=== PATIENT | male | born 1955 | race African-American/Black ===

== ENCOUNTER → 2019-04-30 | Day surgery (SDC) | payer MEDICARE ==
[2019-04-29 10:28] LABS: BASOPHILS % 0.8 % (0.0-1.0); EOSINOPHILS # (AUTO) 0.1 (0.0-0.4); EOSINOPHILS % 1.6 % (0.0-6.0); HEMATOCRIT 35.9 % (38.2-49.6); HEMOGLOBIN 12.2 g/dL (14.0-18.0); LYMPHOCYTES # (AUTO) 1.6 (1.0-3.2); LYMPHOCYTES % 40.8 % (18.0-39.1); MEAN CORPUSCULAR HEMOGLOBIN 33.1 pg (28-32); MEAN CORPUSCULAR VOLUME 97.3 fL (81-99); MONOCYTES # (AUTO) 0.3 (0.2-0.8); MONOCYTES % 6.8 % (4.4-11.3); NEUTROPHILS # (AUTO) 1.9 (2.1-6.9); NEUTROPHILS % 49.7 % (38.7-80.0); PLATELET COUNT 248 x10e3/uL (140-360); RED BLOOD COUNT 3.69 x10e6/uL (4.3-5.7); RED CELL DISTRIBUTION WIDTH 12.4 % (11.7-14.4)
[~2019-04-30] MED LIST: BRILINTA90 MG PO; ELIQUIS5 MG PO; GABAPENTIN100 MG PO; LEVEMIR100 UNIT/1 SQ; LIDOCAINE HCL 2% LOCAL INJ 5 ML SDV VIAL INJ ONE; LISINOPRIL10 MG PO; LOVASTATIN40 MG PO; METFORMIN HCL500 MG PO; METOPROLOL TART50 MG PO; MIDAZOLAM HCL 2 MG/2 ML VIAL ONE; PROPOFOL IV EMULSION 10 MG/ML 50 ML VIAL ONE; RANEXA500 MG PO; VASCEPA1 GM PO
[2019-04-30 09:45] VITALS: BP 139/87
--- NOTE | 2019-04-30 15:40 | Operative Report ---
DATE OF PROCEDURE: SURGEON: Justin Edgar MD NAME OF THE PROCEDURE: Colonoscopy. PREOPERATIVE DIAGNOSIS: Colon cancer screening. DESCRIPTION OF PROCEDURE: After informed written consent, premedications with monitored anesthesia care, a standard video Olympus colonoscope was introduced into the rectum and all the way into the terminal ileum. The terminal ileum and cecum appeared to be normal. The proximal ascending colon showed a 6 mm polyp, removed by cold snare and one Endoclip was placed since the patient was on Eliquis. The descending, transverse, sigmoid, rectum did not show any obstructive lesions, but the prep was suboptimal. IMPRESSION: 1. Suboptimal prep. 2. Colon polyp. RECOMMENDATION: Resume blood thinners tomorrow and repeat colonoscopy in one year with a two-day prep to rule out any other lesions. Justin Edgar MD SR/MODL /[id number] cc: Dayami Calvo MD; FAX:[phone] [address] [place] [address].
== END | disposition home or self-care (01) ==
LOC: OR 06:32
PROVIDERS: ATTEND Internal Medicine Gastroenterology
DX: Z12.11 Encounter for screening for malignant neoplasm of colon (principal); D12.2 Benign neoplasm of ascending colon; I10 Essential (primary) hypertension; I48.91 Unspecified atrial fibrillation; E11.9 Type 2 diabetes mellitus without complications; Z01.812 Encounter for preprocedural laboratory examination; Z79.84 Long term (current) use of oral hypoglycemic drugs; Z79.02 Long term (current) use of antithrombotics/antiplatelets; Z86.73 Personal history of transient ischemic attack (TIA), and cerebral infarction without residual deficits
CPT/HCPCS: 36415 ×2; 45385; 82948; 85025; 88305; J2001; J2250; J2704; 44391

== ENCOUNTER → 2019-12-03 | Day surgery (SDC) | payer MEDICARE ==
[2019-11-29 17:39] LABS: BASOPHILS % 0.7 % (0.0-1.0); EOSINOPHILS # (AUTO) 0.1 (0.0-0.4); EOSINOPHILS % 1.9 % (0.0-6.0); HEMATOCRIT 35.7 % (38.2-49.6); HEMOGLOBIN 11.6 g/dL (14.0-18.0); LYMPHOCYTES % 47.6 % (18.0-39.1); MEAN CORPUSCULAR HEMOGLOBIN 32.5 pg (28-32); MEAN CORPUSCULAR HGB CONC 32.5 g/dL (31-35); MONOCYTES # (AUTO) 0.3 (0.2-0.8); MONOCYTES % 7.5 % (4.4-11.3); NEUTROPHILS # (AUTO) 1.8 (2.1-6.9); NEUTROPHILS % 42.3 % (38.7-80.0); PLATELET COUNT 267 x10e3/uL (140-360); RED BLOOD COUNT 3.57 x10e6/uL (4.3-5.7); RED CELL DISTRIBUTION WIDTH 12.6 % (11.7-14.4)
[~2019-12-03] MED LIST changes: +FENTANYL CITRATE/PF 100MCG/2 ML INJ ONE; +HYDROCHLOROTHIA25 MG PO; +NYSTATIN1 EAC2 PO; +PROPOFOL IV EMULSION 10 MG/ML 20 ML VIAL ONE; -PROPOFOL IV EMULSION 10 MG/ML 50 ML VIAL ONE
[2019-12-03 09:45] VITALS: BP 134/74
--- NOTE | 2019-12-03 13:29 | Operative Report ---
DATE OF PROCEDURE: SURGEON: Justin Edgar MD NAME OF PROCEDURE: EGD. 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 DESCRIPTION OF PROCEDURE: After informed written consent, premedications with monitored anesthesia care. Standard video gastroscope was introduced into the mouth, esophagus, stomach into the 2nd portion of the duodenum. There was minimal amount of retained food in the fundus. Antrum and body showed gastritis. The prepyloric antrum showed multiple superficial gastric ulcers with deformity and biopsies were done from the prepyloric antrum, antrum body. The 1st and 2nd portions appeared to be unremarkable except for some inflammation that was contiguous with the duodenal bulb. History of a prior ulcer or surgical procedure in this area cannot be ruled out. The GE junction appeared a little bit tight, but since upper GI showed a stricture, this was dilated using 18 to 20 mm CRE balloon. IMPRESSION: Gastritis, prepyloric gastric ulcer with deformity in the area of the pylorus, status post dilation of the GE junction due to stricture seen on upper GI. RECOMMENDATION: Avoid aspirin, NSAIDs. Resume medications. We will start PPI, pantoprazole 40 mg once a day, prescription with two refills have been given. The patient has been advised to follow up in the office in three weeks. Justin Edgar MD SR/MODL /[id number]
== END | disposition home or self-care (01) ==
LOC: OR 06:50
PROVIDERS: ATTEND Internal Medicine Gastroenterology
DX: K29.50 Unspecified chronic gastritis without bleeding (principal); K22.2 Esophageal obstruction; K25.9 Gastric ulcer, unspecified as acute or chronic, without hemorrhage or perforation; K31.89 Other diseases of stomach and duodenum; B96.81 Helicobacter pylori [H. pylori] as the cause of diseases classified elsewhere; Z86.010 Personal history of colon polyps; D64.9 Anemia, unspecified; R93.3 Abnormal findings on diagnostic imaging of other parts of digestive tract; I25.10 Atherosclerotic heart disease of native coronary artery without angina pectoris; I48.91 Unspecified atrial fibrillation; I10 Essential (primary) hypertension; E11.9 Type 2 diabetes mellitus without complications; I45.10 Unspecified right bundle-branch block; Z91.041 Radiographic dye allergy status; Z01.810 Encounter for preprocedural cardiovascular examination; Z01.812 Encounter for preprocedural laboratory examination; Z11.59 Encounter for screening for other viral diseases; Z79.84 Long term (current) use of oral hypoglycemic drugs; Z79.02 Long term (current) use of antithrombotics/antiplatelets; Z79.4 Long term (current) use of insulin; Z95.5 Presence of coronary angioplasty implant and graft
CPT/HCPCS: 36415 ×2; 43239; 43249; 82948; 85025; 87635; 88305; 88312; 93005; C1726; J2001; J2704; 43233; J2250; J3010